=== PATIENT | male | born 1940 | race Caucasian/White ===

== ENCOUNTER 2023-04-03 04:04 | Emergency (ER) | payer MEDICARE ==
[2023-04-03] VITALS (15 sets, daily range): BP systolic 157–188; BP diastolic 74–93
[~2023-04-03] VITALS: Ht 177.8 cm; Wt 94.5 kg
[~2023-04-03 04:04] MED LIST: ALLOPURINOL300 MG PO; AMLODIPINE5 MG PO; KEFLEX500 MG PO; LISINOPRIL20 MG PO; METFORMIN500 M2 PO; PRAVASTATIN20 MG PO; XARELTO20 MG PO
[2023-04-03] MEDS ORDERED: CRESTOR5 MG PO (04:50)
[2023-04-03] MEDS ORDERED: JARDIANCE25 MG PO (04:51)
[2023-04-03] MEDS ORDERED: ABILIFY10 MG PO (04:52)
[2023-04-03] MEDS ORDERED: MORPHINE SULFATE 4 MG/ML VIAL IV STA (04:55)
[2023-04-03] MEDS ORDERED: SODIUM CHLORIDE 0.9% 1,000 ML IV ONE ×2 (05:00→06:35)
[2023-04-03 05:16] LABS: BASO% 0.3 % (0-3); EOS% 2.5 % (0-8); HEMATOCRIT 48.9 % (39.0-50.0); HEMOGLOBIN 16.4 g/dl (14.0-18.0); IMMATURE GRANULOCYTES 1.1 % (0.0-5.0); LYMPH% 8.3 % (15-41); MEAN CORPUSCULAR HGB 30.9 pG CALC (26.0-32.0); MEAN CORPUSCULAR HGB CONC 33.5 g/dL CAL (32.0-36.0); MONO% 5.8 % (2-13); NEUT# 12.55 thou/uL (1.82-7.42); RED BLOOD COUNT 5.3 mill/uL (4.70-6.10); RED CELL DISTRI WIDTH 13.4 % (11.5-15.5)
[2023-04-03 05:21] LABS: ALBUMIN 4.7 g/dL (3.2-5.0); ALKALINE PHOSPHATASE 82 u/l (38-126); ANION GAP 18 (6-22 (CALC)); BILIRUBIN, TOTAL 1.3 mg/dL (0.2-1.3); BUN 17 mg/dL (8-23); BUN/CREATININE RATIO 18 (12-20 (CALC)); CARBON DIOXIDE 22 mmol/l (22-30); CHLORIDE 105 mmol/l (95-108); GFR FOR AFR.AMER. > 60 ML/MIN (>=60 (CALC)); GFR OTHER RACES > 60 ML/MIN (>=60 (CALC)); LIPASE 53 u/l (23-300); SGOT/AST 43 u/l (19-48); SODIUM 140 mmol/l (137-146); TOTAL PROTEIN 7.9 g/dL (6.3-8.2)
[2023-04-03 05:31] LABS: MEAN CELL VOLUME 92.3 fL CALC (80.0-100.0)
[2023-04-03 06:30] LABS: URINE BILIRUBIN - DIPSTICK Negative (NEGATIVE); URINE BLOOD DIPSTICK Trace-intact (NEGATIVE); URINE GLUCOSE - DIPSTICK 500 mg/dL (NEGATIVE); URINE KETONE 15 mg/dL (NEGATIVE); URINE LEUK ESTERASE Negative (NEGATIVE); URINE NITRITE - DIPSTICK Negative (Negative); URINE PH 6.5 (4.5-8.0); URINE PROTEIN - DIPSTICK Trace mg/dL (NEG-TRACE); URINE SPECIFIC GRAVITY 1.015; URINE UROBILINOGEN - DIPSTICK 0.2 E.U./dL (0.2)
[2023-04-03 06:31] LABS: URINE COLOR Yellow
[2023-04-03] MEDS ORDERED: Levofloxacin 750 mg Premix 150 ML IV STA (07:07)
== END 2023-04-03 09:10 | disposition short-term general hospital (02) ==
LOC: ED 04:04
PROVIDERS: Family Medicine
DX: K56.0 Paralytic ileus (principal); K57.30 Diverticulosis of large intestine without perforation or abscess without bleeding; I10 Essential (primary) hypertension; E11.9 Type 2 diabetes mellitus without complications; E78.5 Hyperlipidemia, unspecified; Z86.73 Personal history of transient ischemic attack (TIA), and cerebral infarction without residual deficits; Z79.84 Long term (current) use of oral hypoglycemic drugs